=== PATIENT | female | born 1980 | race Caucasian/White ===

== ENCOUNTER → 2018-07-23 11:19 | Outpatient (CLI) | payer OTHER, SELFPAY ==
[2018-07-26 08:30] LABS: HPV Reflexed? NOT INDICATED
== END ==
PROVIDERS: Visit Provider Obstetrics & Gynecology
DX: Z12.4 Encounter for screening for malignant neoplasm of cervix (principal)
CPT/HCPCS: 88175; G0145

== ENCOUNTER → 2020-01-16 10:54 | Outpatient (CLI) | payer OTHER, SELFPAY ==
[2015-12-13 14:52] VITALS: BMI 28.3
[2020-01-16 16:43] LABS: hCG Titer Quant., Serum 16053 mIU/mL (1-3)
== END ==
PROVIDERS: Visit Provider Obstetrics & Gynecology
DX: Z32.01 Encounter for pregnancy test, result positive (principal)
CPT/HCPCS: 36415; 84702

== ENCOUNTER → 2020-03-05 | Outpatient (CLI) | payer OTHER, SELFPAY ==
[2015-12-13 14:52] VITALS: BMI 28.3
[2020-03-05 18:48] LABS: Color, Urine Yellow (Yellow); Glucose, Dipstick Normal (Normal); Ketone-Dipstick Negative (Negative); Leukocyte Esterase-Dipstick Negative /ul (Negative); Nitrite-Dipstick Negative (Negative); Occult Blood-Urine Negative /ul (Negative); Protein-Dipstick Negative (Negative); Specific Gravity, Urine 1.025 (1.002-1.030); Urine Bilirubin Dipstick Negative (Negative); Urine Clarity Clear (Clear); Urine Urobilinogen Normal (Normal)
[2020-03-05 18:52] LABS: Absolute Lymphocyte Count 2.21 X10^3/uL (0.83-4.51); Absolute Neutrophil Count 10.1 X10^3/uL (2.0-7.7); Basophil# 0.03 X10^3/uL; Basophil% 0.2 % (0-1); Eosinophil# 0.21 X10^3/uL; Eosinophils% 1.6 % (0-5); Hematocrit 33.4 % (37-47); Hemoglobin 11.4 g/dL (12.0-15.0); Lymphocyte # 2.21 X10^3/ul (4.0); Lymphocyte % 16.4 % (19-41); Mean Corp Hgb Conc 34.1 g/dL (32-36); Mean Corpuscular Hgb 29.8 pg (27.0-32.0); Mean Corpuscular Volume 87.2 fL (81-99); Mean Platelet Vol. 9.5 fl (6.2-12.0); Monocyte# 0.79 X10^3/uL; Monocyte% 5.9 % (0-10); NRBC Flagged by Analyzer 0 % (0-5); Neutrophil # 10.12 X10^3/uL (2.7-7.7); Neutrophil % 75.3 % (47-70); Platelet Count 347 K/mm3 (150-450); RBC Distribution Width CV 11.9 % (11.6-14.6); RBC Distribution Width SD 37.8 fl (35.1-43.9); Red Blood Count 3.83 M/mm3 (4.2-5.4); White Blood Count 13.4 K/mm3 (4.4-11.0)
[2020-03-05 19:08] LABS: Hemoglobin A1c 5.6 % (4.2-6.3)
[2020-03-06 07:58] LABS: HIV - WCH Non-Reactive (Nonreactive); Hepatitis B Surface Antigen Non-Reactive (Nonreactive); Hepatitis C Antibody Non-Reactive (Nonreactive); Rubella IgG 174.3 IU/mL
[2020-03-12 01:34] LABS: Prenatal RPR NONREACTIVE (NONREACTIVE)
== END | disposition home or self-care (01) ==
PROVIDERS: Referring Provider Obstetrics & Gynecology; Visit Provider Obstetrics & Gynecology
DX: Z34.82 Encounter for supervision of other normal pregnancy, second trimester (principal); Z86.32 Personal history of gestational diabetes
CPT/HCPCS: 81002; 83036; 84443; 85025; 86703; 86762; 86803; 87340

== ENCOUNTER → 2020-06-24 09:41 | Outpatient (CLI) | payer OTHER, SELFPAY ==
[2015-12-13 14:52] VITALS: BMI 28.3
[2020-06-24 11:08] LABS: Hematocrit 30.3 % (37-47); Hemoglobin 10.3 g/dL (12.0-15.0); Mean Corpuscular Volume 91.3 fL (81-99); Mean Platelet Vol. 9.2 fl (6.2-12.0); Platelet Count 279 K/mm3 (150-450); RBC Distribution Width CV 11.9 % (11.6-14.6); RBC Distribution Width SD 39.3 fl (35.1-43.9); Red Blood Count 3.32 M/mm3 (4.2-5.4); White Blood Count 11.6 K/mm3 (4.4-11.0)
[2020-06-24 11:16] LABS: Glucose Challenge Gest 1H 50g 164 mg/dL (70-140)
== END ==
PROVIDERS: Visit Provider Obstetrics & Gynecology
DX: Z34.83 Encounter for supervision of other normal pregnancy, third trimester (principal)
CPT/HCPCS: 36415; 82950; 85027

== ENCOUNTER → 2020-07-01 07:01 | Outpatient (CLI) | payer OTHER, SELFPAY ==
[2020-07-01 08:19] LABS: Glucose GTT-Gestation. Fasting 91 mg/dL (<105)
[2020-07-01 08:56] LABS: Glucose GTT-Gestational 1 Hr 232 mg/dL (<190)
[2020-07-01 09:59] LABS: Glucose GTT-Gestational 2 Hr 195 mg/dL (<165)
[2020-07-01 11:11] LABS: Glucose GTT-Gestational 3 Hr 101 L (<145)
== END ==
PROVIDERS: PCP Internal Medicine; Referring Provider Obstetrics & Gynecology; Visit Provider Obstetrics & Gynecology
DX: R73.09 Other abnormal glucose (principal)
CPT/HCPCS: 36415; 82951; 82952

== ENCOUNTER 2020-07-13 14:00 | Outpatient (RCR) | payer OTHER, SELFPAY ==
[2015-12-13 14:52] VITALS: BMI 28.3
== END 2020-07-13 23:59 ==
LOC: DC 14:00
PROVIDERS: PCP Internal Medicine; Visit Provider Obstetrics & Gynecology
DX: Z71.3 Dietary counseling and surveillance (principal); O24.419 Gestational diabetes mellitus in pregnancy, unspecified control; Z3A.00 Weeks of gestation of pregnancy not specified
CPT/HCPCS: 97802

== ENCOUNTER 2020-07-21 10:11 | Outpatient (RCR) | payer OTHER, SELFPAY ==
[2015-12-13 14:52] VITALS: BMI 28.3
== END 2020-07-21 23:59 | disposition home or self-care (01) ==
LOC: DC 10:11
PROVIDERS: PCP Internal Medicine; Visit Provider Obstetrics & Gynecology
DX: Z71.3 Dietary counseling and surveillance (principal); O24.419 Gestational diabetes mellitus in pregnancy, unspecified control; Z3A.00 Weeks of gestation of pregnancy not specified

== ENCOUNTER 2020-07-27 19:31 | Observation (INO) | payer OTHER, SELFPAY ==
[2015-12-13 14:52] VITALS: BMI 28.3
[2020-07-27 19:29] VITALS: BP 145/69; PULSE 89; TEMP 37.2; O2SAT 99; BMI 27.5
[2020-07-27] MEDS: Lactated Ringers 1,000 ML 999 ML IV (21:37)
[2020-07-27] MEDS: Labetalol 200 MG Tablet PO (21:37)
[2020-07-27 21:47] VITALS: BP 124/78; PULSE 78; TEMP 36.4; O2SAT 99
[2020-07-27 21:51] LABS: Absolute Lymphocyte Count 1.68 X10^3/uL (0.83-4.51); Absolute Neutrophil Count 7.3 X10^3/uL (2.0-7.7); Basophil# 0.02 X10^3/uL; Basophil% 0.2 % (0-1); Eosinophil# 0.11 X10^3/uL; Eosinophils% 1.1 % (0-5); Hematocrit 28.4 % (37-47); Hemoglobin 9.5 g/dL (12.0-15.0); Lymphocyte # 1.68 X10^3/ul (4.0); Mean Corp Hgb Conc 33.5 g/dL (32-36); Mean Corpuscular Hgb 29.4 pg (27.0-32.0); Mean Corpuscular Volume 87.9 fL (81-99); Mean Platelet Vol. 9.1 fl (6.2-12.0); Monocyte# 0.75 X10^3/uL; Monocyte% 7.6 % (0-10); NRBC Flagged by Analyzer 0 % (0-5); Neutrophil # 7.27 X10^3/uL (2.7-7.7); Neutrophil % 73.7 % (47-70); Platelet Count 257 K/mm3 (150-450); RBC Distribution Width CV 12.2 % (11.6-14.6); RBC Distribution Width SD 38.9 fl (35.1-43.9); Red Blood Count 3.23 M/mm3 (4.2-5.4); White Blood Count 9.9 K/mm3 (4.4-11.0)
[2020-07-27] MEDS: Lactated Ringers 1,000 ML 125 ML IV (23:01)
[2020-07-28 00:03] VITALS: BP 108/60; PULSE 85; TEMP 37.2; O2SAT 97
[2020-07-28 01:52] VITALS: BP 106/56; PULSE 80; TEMP 37.1; O2SAT 99
[2020-07-28 04:50] VITALS: BP 110/63; PULSE 81; TEMP 36; O2SAT 99
[2020-07-28 04:55] LABS: Bedside Glucose 76 mg/dL (70-110)
[2020-07-28] MEDS: Lactated Ringers 1,000 ML 125 ML IV (06:57)
--- NOTE | 2020-07-28 07:00 | US_ITS ---
STUDY: OBSTETRICAL ULTRASOUND - BIOPHYSICAL PROFILE REASON FOR EXAM: Female, 40 years old oligo LMP: 12/07/2019. PRIOR ULTRASOUND: None. TECHNIQUE: Transabdominal TECHNICAL QUALITY: Adequate. FINDINGS: There is a single intrauterine fetus. The fetus is in a cephalic presentation. There is demonstrated cardiac activity with a heart rate of 140 bpm. There is decreased amniotic fluid consistent with oligohydramnios. The largest amniotic fluid pocket measures 2.5 cm x 2.2 cm. The amniotic fluid index (BRETT) is 6.5 cm. The placenta is anterior in location and is not low lying. There are Grade 1 placental changes. Age by LMP: 33 weeks, 3 days. TAZ by LMP: 09/12/2020. BIOPHYSICAL PROFILE: Breathing Movements (FBM): 2 Gross Body Movements (GBM): 2 Tone (FT): 2 Amniotic Fluid Volume (AFV): 0 TOTAL SCORE: US/Biophysical Prof W/O Non Stres IMPRESSION: biophysical profile of 04/20. Electronically Signed: Bairon Vaca, at 8:29 EDT , Service support ,
--- NOTE | 2020-07-28 07:28 | HP.PCM_ITS ---
History and Physical Date of Admission: 07/27/20 SUBJECTIVE: 40 yo L3 at 33/2w, TAZ 09/12/20 by 6/4w US, admitted for low amniotic fluid index and irregular FHR. Pt was in office for NST for GDMA2 and cHTN, reactive NST however baby had some irregular beats. BPP was done with BRETT of 3 and missed beat when monitoring heart. Admitted for IVF hydration. Complicated by: GDMA2 on glyburide and cHTN. PARITY: (G-Total Pregnancies P-Fullterm,Premature,Induced AB,Spont AB, Ectopics, Multiple,Living) ATZ CONFIRMATION: By LMP: 08/13/19 By First Ultrasound Exam: 09/12/20 Final TAZ: 09/12/20 OB PROBLEM LIST: AMA-declines testing CF carrier. Tested at [facility]. Spouse tested and is NOT a carrier GDM in second Has gestational DM. Start with dietary consult and diabetic training. 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 Apr 24 39 8 7 7 C-Sec Epidural No Dec 29 34 0 0 0 C-Sec Epidural No REVIEW OF SYSTEMS: GENERAL - Denies fever, or chills SKIN - Denies rash, new skin lesions, or change in moles EYES - Denies blurred vision, or change in visual acuity EARS - Denies ear pain, or difficulty hearing NOSE - Denies nasal congestion, discharge, or bleeding MOUTH - Denies sore throat, or difficulty swallowing NECK - Denies pain or swelling RESPIRATORY - Denies shortness of breath, cough, wheezing CARDIOVASCULAR - Denies palpitations, chest pain, orthopnea, PND, peripheral edema, syncope or claudication GASTROINTESTINAL - Denies nausea, vomiting, diarrhea, constipation, Denies ab dominal pain, melena and or bright red blood GENITOURINARY - Denies dysuria, frequency of urination, urgency, or hesitancy MUSCULOSKELETAL - Denies joint or muscle pain, or back pain NEUROLOGICAL - Denies localized numbness, weakness, or tingling PSYCHIATRIC - Denies depression, anxiety, substance abuse or suicide attempts ENDOCRINE - Denies heat or cold intolerance, weight loss or gain, increasing thirst HEMATO-IMMUNOLOGIC - Denies easy bruising, bleeding, oral ulcerations or recurrent infections INFECTION HISTORY: High risk AIDS: No High risk Hepatitis: No Exposed to TB: No Exposed to Herpes: No Rash/viral illness since LMP: No History of STD: No PHYSICAL EXAMINATION General Appearence: 40 yo female in no acute distress Vital Signs: AF, VSS Heart: RRR without rubs or gallops Lungs: CTA x 2 Abdomen: gravid Fetus: Size: AGA Movement: present Heart: present, NST reactive on admission LABS: GBS unk Rubella immune HIV neg Hep B neg RPR nonreactive O pos Impression /Plan: 40 yo L3 at 33/2w, TAZ 09/12/20 by 4w US, admitted for low amniotic fluid index and irregular FHR. Complicated by: GDMA2 on glyburide and cHTN. -Admitted to L&D for IVF hydration. Given 1L LR bolus followed by LR at 125cc/hr -Continuous monitoring. -Continue labetolol and glyburide. -Blood glucose fasting AM and 2hr postprandial. -Likely home this morning after BPP with outpatient MFM consult.
--- NOTE | 2020-07-28 07:35 | PN.OBGYN_ITS ---
Subjective: Antepartum D1 Objective: Pt feeling well, slept some overnight. No leaking. +FM. - Physical Exam Vitals/I&O's: Vital Signs Temp Pulse BP Pulse Ox 96.8 F L 81 110/63 99 07/28/20 04:50 07/28/20 04:50 07/28/20 04:50 07/28/20 04:50 Weight: 77.383 kg Body Mass Index (BMI) 27.5 Intake and Output for Last 24 Hours 07/26/20 07/27/20 07/28/20 23:59 23:59 23:59 Intake Total 1999 991.67 / 991.67 Balance 1999 991.67 / 991.67 General: Oriented x3, Cooperative, No apparent distress HEENT: Atraumatic, Normocephalic Lungs: Normal air movement Abdomen: Soft, Gravid Extremities: No cyanosis, No edema Skin: No rashes Psych/Mental Status: Normal Affect, Appropriate Laboratory Results 07/27/20 21:30: WBC 9.9, RBC 3.23 L, Hgb 9.5 L, Hct 28.4 L, MCV 87.9, MCH 29.4, MCHC 33.5, RDW Std Deviation 38.9, RDW Coeff of Esha 12.2, Plt Count 257, MPV 9.1, Immature Gran % (Auto) 0.400, Neut % (Auto) 73.7 H, Lymph % (Auto) 17.0 L, [place] % (Auto) 7.6, Eos % (Auto) 1.1, Baso % (Auto) 0.2, Absolute Neuts (auto) 7.3, Absolute Lymphs (auto) 1.68, Nucleated RBC % 0 07/27/20 21:30: Blood Type O POSITIVE, Antibody Screen NEGATIVE 07/28/20 04:48: POC Glucose 76 Current Medications Lactated Ringer's () 1,000 mls @ 125 mls/hr IV .Q8H [facility] Last Admin: 07/28/20 06:57 Dose: 125 mls/hr Documented by: Labetalol HCl (Trandate) 200 mg PO BID [facility] Last Admin: 07/27/20 21:37 Dose: 200 mg Documented by: Medical Necessity - Tobacco Use Smoking Status: Never smoker Assessment/Plan All Active Problems Consultation regarding prematurity complication (Acute) L3 at 33/3w admitted for low amniotic fluid index and irregular FHR. monitoring reactive overnight with 140s, moderate variability, normal baseline, +accelerations, no decelerations. Some irregular beats noted by RN overnight intermittently, but not consistently. BPP 10/10. BRETT 6.5 cm with greater than 2x2 cm pocket which is not oligohydramnios. Will plan for discharge this morning after 12 hours of reassuring/reactive monitoring for MFM outpatient follow up and follow with NST/BPP and visit in office on .
[2020-07-28 08:15] VITALS: BP 129/80; PULSE 92; TEMP 36.3
--- NOTE | 2020-07-28 09:00 | DCINST_ITS ---
You will use the following diet at home:: Regular Your food should be the consistency of: Regular Discharge Activity: Return to Normal Activity, May Drive, May Shower, May Take a Tub Bath May shower in (days): 0 - Now May resume sexual activity in: No Restrictions Weight Bearing Status: Weight bearing as tolerated Call your doctor if you observe: Fever of 101 or Higher - Decreased movement, contractions, leaking fluid. Allergies/Adverse Reactions: Allergies doxycycline Allergy (Verified 07/27/20 19:31) Rash Sulfa (Sulfonamide Antibiotics) Allergy (Verified 07/27/20 19:31) Rash Medications to take at Discharge Ferrous Sulfate [Iron Supplement] 325 mg PO BID 11/30/15 Labetalol [Trandate (Beta Breonna)] 200 mg PO BID 11/30/15 Vits [Prenatabs FA ] 1 tablet PO DAILY 11/30/15 Glyburide 2.5 mg PO DINNER 07/27/20 Primary Care Physician: Beatriz Flower DO [Primary Care Provider] - Test Results: Test results from this visit will be discussed in further detail at your follow- up appointment, if applicable. Proposed Discharge Date: 07/28/20
[2020-07-28] MEDS: Labetalol 200 MG Tablet PO (09:06)
== END 2020-07-28 09:25 | disposition home or self-care (01) ==
LOC: WPOUT 07-28 12:11 → WP 07-28 12:14
PROVIDERS: Admitting Provider Student in an Organized Health Care Education/Training Program; PCP Internal Medicine; Visit Provider Student in an Organized Health Care Education/Training Program
DX: O24.419 Gestational diabetes mellitus in pregnancy, unspecified control (principal); Z3A.33 33 weeks gestation of pregnancy; O10.913 Unspecified pre-existing hypertension complicating pregnancy, third trimester; Z79.899 Other long term (current) drug therapy
CPT/HCPCS: 96360; 96361 ×2; 36415; 59025; 59050; 76819; 82962; 85025; 86850; 86900; 86901; 99218; J7120; G0378

== ENCOUNTER → 2020-08-20 | Outpatient (CLI) | payer OTHER, SELFPAY ==
[2020-07-27 19:29] VITALS: BMI 27.5
== END | disposition home or self-care (01) ==
LOC: LABSPEC 13:00
PROVIDERS: PCP Internal Medicine; Visit Provider Obstetrics & Gynecology
DX: Z36.85 Encounter for antenatal screening for Streptococcus B (principal)
CPT/HCPCS: 87081

== ENCOUNTER → 2020-08-28 09:45 | Outpatient (CLI) | PROVIDERS: PCP Internal Medicine; Visit Provider Obstetrics & Gynecology | DX: Z20.828 Contact with and (suspected) exposure to other viral communicable diseases (principal) | CPT/HCPCS: 87635; C9803; U0003 ==

== ENCOUNTER 2020-08-31 13:55 | Inpatient (IN) | payer OTHER, SELFPAY ==
--- NOTE | 2020-08-30 12:46 | HP.PCM_ITS ---
History and Physical Date of Admission: 08/31/20 ACOG ANTEPARTUM RECORD - HISTORY AND PHYSICAL (08/30/2020) Name: CONNIE MORA History of This this is a 40-year-old G3 who presents for repeat C- section at 38 weeks and 2 days gestation. care has been uneventful except for gestational diabetes with marginal control using insulin. Given this it was decided to proceed with section at this time. Patient is also on labetalol 200 mg twice daily for hypertension. OB Physician: APRYL 's Physician: Dr. Juli Allen ...................................................................... : 1980 Age: 40 Address: [address] [place] [address] Phone: (h) [phone] ([phone] Insurance Carrier: [facility] [id number] Emergency Contact: ASHUTOSH MORA [phone] ...................................................................... Final TAZ: 09/12/20 By Ultrasound: 6 weeks 4 days PARITY: (G-Total Pregnancies P-Fullterm,Premature,Induced AB,Spont AB, Ectopics, Multiple,Living) TAZ CONFIRMATION: By LMP: 08/13/19 By First Ultrasound Exam: 09/12/20 Final TAZ: 09/12/20 OB PROBLEM LIST: FHT irreg. For MFM appt 08-03-20. AMA-declines testing CF carrier. Tested at [facility]. Spouse tested and is NOT a carrier GDM in second GDMA2 Started Insulin, need x2/wk testing--poor control; plan COVID and celestone at 36 weeks and possible delivery at 37 weeks On Labetalol 200 mg BID for HTN well controlled Plans R C/S ALLERGIES: Doxycycline Rash Sulfa (Sulfonamide Antibiotics) Rash Sulfonamides Rash MEDICATIONS: ferrous sulfate 325 mg (65 mg iron) tablet One pill by mouth twice a day labetalol 200 mg tablet One tablet by mouth 2x daily Levemir FlexTouch U-100 Insulin 100 unit/mL (3 mL) subcutaneous pen 10 units qhs + DHA 28 mg iron- 975 mcg-200 mg combo pack daily SOCIAL HISTORY: Smoking - Never Alcohol Use - socially Diet - balanced Diet Lifestyle - moderate stress lifestyle and Exercise - regular Employer - [employer] 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) Illicit Drug Use - denies use of street drugs Sexual Activity - Residence - lives with Place of - [place] Love Hours Worked - 40 hours per week Spouse-Sig Other Name - Ashutosh Mora Spouse-Sig Other Occupation - mobli Spouse-Sig Other Phone No - [phone] Children Name(s) - Qian Cardenas Nolan (twins) PRIOR DELIVERY HISTORY DEL DATE GEST LAB WT LB WT OZ TYPE ANES LABOR TX Apr 24 39 8 7 7 C-Sec Epidural No Dec 16 34 0 0 0 C-Sec Epidural No ANTEPARTUM FLOW CHART ___ VISIT RTC FU F F KY U U DATE WK MD WKS HT PN HR M SS BP ED WT [place] GL D EF ST __ ____ ___ __ __ ___ __ __ __ ___ __ __ __ ___ __ 15 Oct 37 JMW 3 37 + + 112/70 0 171 - - 12 Oct 37 CM + + 112/70 0 170 - - 08 Oct 36 JMW 1 36 V + + 110/70 0 169 - - cl 50 hi 05 Oct 36 JM 1 36 V + + 120/70 169 - - 01 Oct 35 JMW 1 35 + + 116/72 0 169 - - 28 Sep 35 CM + + 104/62 0 169 - - 24 Sep 34 JMW 1 34 + + 127/70 0 168 - - 17 Sep 33 JM 1 33 V + + 120/60 0 169 - - 14 Sep 33 2 + + 116/60 0 170 tr - 10 Sep 32 JMW 1 32 + + 120/68 tr 168 tr - 02 Sep 31 JMW 1 33 B + + 110/70 0 168 tr - 12 Aug 28 JMW 3 28 + + 134/72 0 169 - - 15 Manish 24 JMW 4 24 + + 130/70 sl 167 - - 17 May 02 JMW 4 20 + + 124/68 0 161 - - 21 March 16 JMW 3 16 + ? 128/74 0 158 - - 23 Feb 12 JMW 4 + O 138/80 0 151 - - ANTEPARTUM NOTE(S): Aug 27 2020: Uncontrolled BSs; proceed with R-C/S Aug 24 2020: Aug 20 2020: Feeling well. Blood sugars copied for review., BPP 08/22Aug 17 2020: Aug 13 2020: Blood sugar log copied for review Aug 10 2020: Aug 06 2020: Marginal BSs; inc insulin to 12 units at hs; BPP 08/22Jul 30 2020: Jul 27 2020: Jul 23 2020: marginal BS control; inc Glyburide to 2.5 at dinner Jul 15 2020: see note, BS poor control; mod diet Jun 24 2020: One Hr PG today May 27 2020: Glucola/Instructions Given,Good FM Apr 29 2020: US OK Apr 02 2020: see progress note, Declines AFP Mar 05 2020: Doing Well COMPREHENSIVE ANTEPARTUM NOTE(S): Aug 27 2020: Connie is here for her NST at 37 w 5 d. She states that she feels well, and notes good FM. She denies spotting/LoF/cramping No edema noted. She is looking forward to the baby's . Blood sugar log copied for review. NST reactive, read per Dr. Stanley. AW Aug 24 2020: Connie is here for NST at 37.2 w. Feeling well. Baby active. No edema. NST read as reactive by Dr DIAMOND. Eagteresita for CS and baby. ANDREW. Aug 20 2020: Connie is here for her NST at 36 w 5 d. She states that she feels well, Reports good FM. Occasional mild cramping noted. Denies spotting/LoF. No edema noted. NST read per Dr. Stanley. AW Aug 17 2020: Connie is here for NST. Reports feeling well. Baby active. Questions about BS readings and when RCS to be done. NST reactive per Dr CANCINO and to his schedule for her questions. ANDREW. Aug 17 2020: 36wk GDMA2 on Levemir 16U qhs. OTBS Fasting 100-105, PP 110's. Will increase Levemir to 20U at night. NST reactive today. For NST q Monday and U/S . Repeat c/s, needs GBS. BARAK Aug 13 2020: Connie is here for her NST at 35 w 5 d. She states that she feels well, and reports good FM. Denies spotting/LoF/cramping. NO edema noted. Blood sugar log copied for review. She expresses concern about FBS still being up most days. NST reactive, read per Dr. Stanley. AW Aug 13 2020: BPP 10/10; very poor FBS control; increase pm insulin to 16 and plan COVID and celestone at 36 weeks and possible delivery at 37 weeks Aug 10 2020: Connie is here for NST. Feeling well. Baby active. No edema. Brought BS to be copied for chart. Relates I can't get the fasting one down. NST read as reactive by Dr DIAMOND; Insulin to be increased to 14 units. Connie verbalizes understanding. Advised to bring BS readings to regular PNV not necessary for NST. She is agreeable. andrew. Aug 06 2020: Connie is here at 34 w 5 d for a NST. She states that she feels good. Good FM noted. She denies spotting/LoF/cramping. No edema noted. NST reactive, read per Dr. Stanley. Blood sugar log copied for review. Connie states that she is doing well with insulin. AW Jul 30 2020: Connie is here for PNV, NST, BPP. She is now taking Glyburide 2.5 mg daily and will need a refill. Script is for 1.25 and taking 2.5 mg daily. She has appt with MFM on Monday. Copy of blood sugars for review by Dr Anabel Ortiz. LMT Jul 30 2020: Connie is here at 33.5 w for NST, US and appt w Dr CANCINO. States baby is active, No edema. BS readings brought and copied for chart. NST read as reactive by Dr CANCINO. ANDREW. Jul 30 2020: Pt last week with irregular heart beat, now with reactive NST 130/mod esha/+accel/-decel and no irregular beats noted. BPP reassuring 06/20. Pt for MFM consult for irregular heart rate 08/03/20 at 1100. GDMA2 on Glyburide, based on fasting blood sugars and PP will stop Glyburide and start Levemir 10 units qhs and titrate appropriately at next visit in 1 week. For BPP and NST at next visit, then for x2/week testing needs ordered. BARAK Jul 27 2020: 33/2w for NST today. Reactive after vibroacoustic stim at 40 m. Irregular HR noted on NST, BPP completed. BRETT 3 with 2x2, skipped beat noted on US. Due to skipped beats and low brett, plan for admission overnight with IVF hydration and repeat BPP in AM. L notified. Pt amenable. Will go home and return this evening. Jul 27 2020: Connie is here for NST at 33.2 weeks gestation. States baby is active. No edema. Feeling well. NST read as reactive by Dr Octavio Madrigal after almost 50 minutes. Acoustic stim used at [address] Octavio Madrigal was asked to look at and listen to FHT tracing. BPP done. To for monitoring and further eval. ANDREW. Jul 23 2020: NST reactive at 32 w 5 d, read per Dr. Stanley. BPP next. AW Jul 15 2020: Connie is being seen for PNV. Pt is 31 weeks and 4 days. US prior to visit. She has been struggling with heartburn and has failed on Tums. Advised to try Maalox, Mylanta, Pepcid, and Tagement before trying Prilosec. Pt has questions regarding blood sugars. AM Jun 24 2020: Connie is here for her 28 wk PNV today. She is doing good. Good FM. Medications and allergies reviewed today. GCT and CBC drawn today. She inquires about her FMLA forms. No questions or concerns expressed today. LJW Apr 02 2020: Doing well. Taking Labetalol 200 mg BID. Following COVID. 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 Thinks she may have felt FM once so far. Reviewed expected FM over the next 4-6 weeks. Declines genetics testing. kb Mar 06 2020: Telehealth NOB visit completed with 22 minutes spent on phone. Gill is called for NOB visit. She is with 3 living children as second was twin gestation. She delivered full-term with first . Second was complicated by GDM, twin gestation and she delivered at 34 weeks. Her sons twin A Qian weighed 5 lbs 7 oz, Twin B Ras weighed 4 lbs 11 oz. They did well but did stay in hospital for 2 weeks, required only 1 day of O2 and did gain back all of their weight very quickly. She was successful with both of them. Prior pregnancies were from [facility] and this was spontaneous. She has already spoken with waiter/waitress economy class to remind her of healthy diet to try and prevent GDM. Reviewed dietary recommendations and exercise of at least 30 minutes 5x/wk strongly encouraged. She is mindful of all and plans to incorporate in lifestyle. She is a known CF carrier but is not. Discussed AMA and testing options. She relates she is not interested in any of these currently. She had 2 prior C/S and planning repeat at 39 weeks. She does have Chronic Hypertension and is on Labetalol 200 mg bid. Discussed likely will have increased third trimester testing. Dr Stanley will determine this later in and review. panel is reviewed, OB forms reviewed. She is without question or concern otherwise and call ended. LMT Mar 05 2020: Connie is feeling less nausea, only occurring now once a week. No vomiting. [place] Depression Questionnaire completed showing 02/09. Genetics questionnaire completed showing she is AMA and taking Labetalol 200 mg BID for HTN. Declines genetics testing, known CF carrier, spouse is not. kbm Jan 22 2020: Connie is here for a PNV. Some nausea, no vomiting. Wants to know if she can take her vitamin D and elderberry supplements with . Also wants to discuss her risk of gestational diabetes. She had it with her last and wants to know when testing for that is. Gave her information for the blood test for gender. MK Jan 22 2020: ok REVIEW OF SYSTEMS: GENERAL - Denies fever, or chills SKIN - Denies rash, new skin lesions, or change in moles EYES - Denies blurred vision, or change in visual acuity EARS - Denies ear pain, or difficulty hearing NOSE - Denies nasal congestion, discharge, or bleeding MOUTH - Denies sore throat, or difficulty swallowing NECK - Denies pain or swelling RESPIRATORY - Denies shortness of breath, cough, wheezing CARDIOVASCULAR - Denies palpitations, chest pain, orthopnea, PND, peripheral edema, syncope or claudication GASTROINTESTINAL - Denies nausea, vomiting, diarrhea, constipation, Denies abdominal pain, melena and or bright red blood GENITOURINARY - Denies dysuria, frequency of urination, urgency, or hesitancy MUSCULOSKELETAL - Denies joint or muscle pain, or back pain NEUROLOGICAL - Denies localized numbness, weakness, or tingling PSYCHIATRIC - Denies depression, anxiety, substance abuse or suicide attempts ENDOCRINE - Denies heat or cold intolerance, weight loss or gain, increasing thirst HEMATO-IMMUNOLOGIC - Denies easy bruising, bleeding, oral ulcerations or recurrent infections GENETICS SCREENING: Age 35+ years: Yes Thalassemia: No Neural Tube Defect: No Down Syndrome: No FAUSTO-SACHS: No Sickle Cell Disease: No Hemophilia: No Musc. Dystrophy: No Cystic Fibrosis: No-declines screening [place] Chorea: No Mental Retardation: No Fragile X: No Other genetic: No Other defects: No SABs/still births: No Drugs since LMP: No Comments: Lebetalol INFECTION HISTORY: High risk AIDS: No High risk Hepatitis: No Exposed to TB: No Exposed to Herpes: No Rash/viral illness since LMP: No History of STD: No MENSTRUAL HISTORY: *Menses Amount/Duration: 4 daysFrequency: variablePrior Menses Date: 08/06/2010Menarche (Age Onset): 16* PAST SUMMARY: PARITY: 1. Total Pregnancies............ 3 2. Full Term Pregnancies........ 1 3. Premature.................... 1 4. Abortions - Induced.......... 0 5. Abortions - Spontaneous...... 0 6. Ectopics..................... 0 7. Multiple Births.............. 1 8. Living Children.............. 3 PAST #1: Date of :.................. 04/20/12 Gestation Weeks:................ 39 Length of labor(hours):......... 8 Sex:............................ M Weight-lbs:............... 7 Weight-oz:................ 7 Type of Delivery:............... C-Sect Type of Anesthesia:............. Epidural Place of Delivery:.............. [place] Treatment of Labor?:.... No Comment: PAST #2: Date of :.................. 12/22/15 Gestation Weeks:................ 34 Length of labor(hours):......... 0 Sex:............................ male x2 Weight-lbs:............... 0 Weight-oz:................ 0 Type of Delivery:............... C-Sect Type of Anesthesia:............. Epidural Place of Delivery:.............. [place] Treatment of Labor?:.... No Comment: QIAN/RAS PHYSICAL EXAMINATION General Appearence: 40 yo female in no acute distress Vital Signs: AF, VSS Heart: RRR without rubs or gallops Lungs: CTA x 2 Breasts: deferred Abdomen: gravid Pelvis: Cervix: Presentation: cephalic Station: Fetus: Size: AGA Movement: present Heart: present Labs for : CONNIE MORA since 12/17/2019 ORDER DATEIN DESCRIPTION VALUE UNITS RANGE A+ COMMENT CORONAVIRUS 19, JAELYN SENDOUT 08/28/20 NOTE Original Ordering Provider: Seymour Stanley COVID-19,JAELYN Not Detected Not Detected This nucleic acid amplification test was developed and its performance characteristics determined by [id number]. Nucleic acid amplification tests include PCR and TMA. This test has not been FDA cleared or approved. This test has been authorized by FDA under an Emergency Use Authorization (EUA). This test is only authorized for the duration of time the declaration that circumstances exist justifying the authorization of the emergency use of in vitro diagnostic tests for detection of SARS-CoV-2 virus and/or diagnosis of COVID-19 infection under section 564(b)(1) of the Act, 21 U.S.C. 360bbb-3(b) (1), unless the authorization is terminated or revoked sooner. When diagnostic testing is negative, the possibility of a false negative result should be considered in the context of a patient's recent exposures and the presence of clinical signs and symptoms consistent with COVID-19. An individual without symptoms of COVID-19 and who is not shedding SARS-CoV-2 virus would expect to have a negative (not detected) result in this assay. CULTURE, GROUP B STREPTOCOCCUS 08/20/20 NOTE Original Ordering Provider: Seymour Stanley EMIR Culture Group B Beta Streptococcus is not isolated. Reviewed by SEYMOUR Other 07/29/20 Unusual lab scanned Reviewed by SEYMOUR DISCHARGE INSTRUCTION 07/28/20 [facility] Medical Records Department [address] [place] [id number] Instructions for Home/Discharge Instructions 07/28/20 0900 MR#: [id number] Acct: [id number] Name: CONNIE MORA Rep #: [id number] : 1980 40 From: Kell Ortiz DO PCP: Dr. Beatriz Flower, DO Status:DEP CLI You will use the following diet at home:: Regular Your food should be the consistency of: Regular Discharge Activity: Return to Normal Activity, May Drive, May Shower, May Take a Tub Bath May shower in (days): 0 - Now May resume sexual activity in: No Restrictions Weight Bearing Status: Weight bearing as tolerated Call your doctor if you observe: Fever of 101 or Higher - Decreased movement, contractions, leaking fluid. Allergies/Adverse Reactions: Allergies doxycycline Allergy (Verified 07/27/20 19:31) Rash Sulfa (Sulfonamide Antibiotics) Allergy (Verified 07/27/20 19:31) Rash Medications to take at Discharge Ferrous Sulfate [Iron Supplement] 325 mg PO BID 11/30/15 Labetalol [Trandate (Beta Breonna)] 200 mg PO BID 11/30/15 Vits [Prenatabs FA ] 1 tablet PO DAILY 11/30/15 Glyburide 2.5 mg PO DINNER 07/27/20 Primary Care Physician: Beatriz Flower DO [Primary Care Provider] - Test Results: Test results from this visit will be discussed in further detail at your follow-up appointment, if applicable. Proposed Discharge Date: 07/28/20 07/28/20 1145 Date Kell Ortiz DO CC: Dr. Beatriz Flower DO Signed Reviewed by SEYMOUR PROGRESS NOTE - OBGYN 07/28/20 [facility] Medical Records Department [address] [place] [id number] Progress Note - OBGYN 07/28/20 0735 MR#: [id number] Acct: [id number] Name: CONNIE MORA Rep #: [id number] : 1980 40 From: Kell Ortiz DO PCP: Dr. Beatriz Flower DO Status:DEP CLI Y Location: [facility] Subjective: Antepartum D1 Objective: Pt feeling well, slept some overnight. No leaking. +FM. - Physical Exam Vitals/I O's: Vital Signs Temp Pulse BP Pulse Ox 96.8 F L 81 110/63 99 07/28/20 04:50 07/28/20 04:50 07/28/20 04:50 07/28/20 04:50 Weight: 77.383 kg Body Mass Index (BMI) 27.5 Intake and Output for Last 24 Hours 07/26/20 07/27/20 07/28/20 23:59 23:59 23:59 Intake Total 1999 991.67 / 991.67 Balance 1999 991.67 / 991.67 General: Oriented x3, Cooperative, No apparent distress HEENT: Atraumatic, Normocephalic Lungs: Normal air movement Abdomen: Soft, Gravid Extremities: No cyanosis, No edema Skin: No rashes Psych/Mental Status: Normal Affect, Appropriate Laboratory Results 07/27/20 21:30: WBC 9.9, RBC 3.23 L, Hgb 9.5 L, Hct 28.4 L, MCV 87.9, MCH 29.4, MCHC 33.5, RDW Std Deviation 38.9, RDW Coeff of Esha 12.2, Plt Count 257, MPV 9.1, Immature Gran % (Auto) 0.400, Neut % (Auto) 73.7 H, Lymph % (Auto) 17.0 L, [place] % (Auto) 7.6, Eos % (Auto) 1.1, Baso % (Auto) 0.2, Absolute Neuts (auto) 7.3, Absolute Lymphs (auto) 1.68, Nucleated RBC % 0 07/27/20 21:30: Blood Type O POSITIVE, Antibody Screen NEGATIVE 07/28/20 04:48: POC Glucose 76 Current Medications Lactated Ringer's () 1,000 mls @ 125 mls/hr IV .Q8H [facility] Last Admin: 07/28/20 06:57 Dose: 125 mls/hr Documented by: Labetalol HCl (Trandate) 200 mg PO BID [facility] Last Admin: 07/27/20 21:37 Dose: 200 mg Documented by: Medical Necessity - Tobacco Use Smoking Status: Never smoker Assessment/Plan All Active Problems Consultation regarding prematurity complication (Acute) L3 at 33/3w admitted for low amniotic fluid index and irregular FHR. monitoring reactive overnight with 140s, moderate variability, normal baseline, +accelerations, no decelerations. Some irregular beats noted by RN overnight intermittently, but not consistently. BPP 10/10. BRETT 6.5 cm with greater than 2x2 cm pocket which is not oligohydramnios. Will plan for discharge this morning after 12 hours of reassuring/reactive monitoring for MFM outpatient follow up and follow with NST/BPP and visit in office on . 07/28/20 1141 Date Kell Ortiz DO CC: Signed Reviewed by SEYMOUR HISTORY AND PHYSICAL EXAM 07/28/20 [facility] Medical Records Department [address] [place] [address] History and Physical 07/28/20 0728 MR#: [id number] Acct: [id number] Name: CONNIE MORA Rep #: [id number] : 1980 40 From: Kell Ortiz DO PCP: Dr. Beatriz Flower, DO Status:REG CLI Y Location: [id number] History and Physical Date of Admission: 07/27/20 SUBJECTIVE: 40 yo L3 at 33/2w, TZA 09/12/20 by 6/4w US, admitted for low amniotic fluid index and irregular FHR. Pt was in office for NST for GDMA2 and cHTN, reactive NST however baby had some irregular beats. BPP was done with BRETT of 3 and missed beat when monitoring heart. Admitted for IVF hydration. Complicated by: GDMA2 on glyburide and cHTN. PARITY: (G-Total Pregnancies P-Fullterm,Premature,Induced AB,Spont AB, Ectopics, Multiple,Living) TAZ CONFIRMATION: By LMP: 08/13/19 By First Ultrasound Exam: 09/12/20 Final TAZ: 09/12/20 OB PROBLEM LIST: AMA-declines testing CF carrier. Tested at [facility]. Spouse tested and is NOT a carrier GDM in second Has gestational DM. Start with dietary consult and diabetic training. 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 Apr 24 39 8 7 7 C-Sec Epidural No Dec 29 34 0 0 0 C-Sec Epidural No REVIEW OF SYSTEMS: GENERAL - Denies fever, or chills SKIN - Denies rash, new skin lesions, or change in moles EYES - Denies blurred vision, or change in visual acuity EARS - Denies ear pain, or difficulty hearing NOSE - Denies nasal congestion, discharge, or bleeding MOUTH - Denies sore throat, or difficulty swallowing NECK - Denies pain or swelling RESPIRATORY - Denies shortness of breath, cough, wheezing CARDIOVASCULAR - Denies palpitations, chest pain, orthopnea, PND, peripheral edema, syncope or claudication GASTROINTESTINAL - Denies nausea, vomiting, diarrhea, constipation, Denies abdominal pain, melena and or bright red blood GENITOURINARY - Denies dysuria, frequency of urination, urgency, or hesitancy MUSCULOSKELETAL - Denies joint or muscle pain, or back pain NEUROLOGICAL - Denies localized numbness, weakness, or tingling PSYCHIATRIC - Denies depression, anxiety, substance abuse or suicide attempts ENDOCRINE - Denies heat or cold intolerance, weight loss or gain, increasing thirst HEMATO-IMMUNOLOGIC - Denies easy bruising, bleeding, oral ulcerations or recurrent infections INFECTION HISTORY: High risk AIDS: No High risk Hepatitis: No Exposed to TB: No Exposed to Herpes: No Rash/viral illness since LMP: No History of STD: No PHYSICAL EXAMINATION General Appearence: 40 yo female in no acute distress Vital Signs: AF, VSS Heart: RRR without rubs or gallops Lungs: CTA x 2 Abdomen: gravid Fetus: Size: AGA Movement: present Heart: present, NST reactive on admission LABS: GBS unk Rubella immune HIV neg Hep B neg RPR nonreactive O pos Impression /Plan: 40 yo L3 at 33/2w, TAZ 09/12/20 by /4w US, admitted for low amniotic fluid index and irregular FHR. Complicated by: GDMA2 on glyburide and cHTN. -Admitted to L D for IVF hydration. Given 1L LR bolus followed by LR at 125cc/hr -Continuous monitoring. -Continue labetolol and glyburide. -Blood glucose fasting AM and 2hr postprandial. -Likely home this morning after BPP with outpatient MFM consult. 07/28/20 0735 Date Kell Ortiz DO Cosigner Signature: Date (if applicable) CC: Dr. Kell Ortiz DO; Dr. Beatriz Flower DO Signed Reviewed by SEYMOUR TAN W/O NON STREMarty 07/28/20 [facility] Imaging Services [address] [place] [id number] Biophysical Prof W/O Non Stres MR#: [id number] Acct: [id number] Name: CONNIE MORA Rep #: [id number] : 1980 F 40 From: Bairon carpenter MD PCP: Dr. Beatriz Flower DO Status: REG CLI Study: Biophysical Prof W/O Non Stres Date of Exam: 0 07/28/20 Exam# [id number] Ordering Dr: Kell Ortiz DO STUDY: OBSTETRICAL ULTRASOUND - BIOPHYSICAL PROFILE REASON FOR EXAM: Female, 40 years old oligo LMP: 12/07/2019. PRIOR ULTRASOUND: None. TECHNIQUE: Transabdominal TECHNICAL QUALITY: Adequate. FINDINGS: There is a single intrauterine fetus. The fetus is in a cephalic presentation. There is demonstrated cardiac activity with a heart rate of 140 bpm. There is decreased amniotic fluid consistent with oligohydramnios. The largest amniotic fluid pocket measures 2.5 cm x 2.2 cm. The amniotic fluid index (BRETT) is 6.5 cm. The placenta is anterior in location and is not low lying. There are Grade 1 placental changes. Age by LMP: 33 weeks, 3 days. TAZ by LMP: 09/12/2020. BIOPHYSICAL PROFILE: Breathing Movements (FBM): 2 Gross Body Movements (GBM): 2 Tone (FT): 2 Amniotic Fluid Volume (AFV): 0 TOTAL SCORE: US/Biophysical Prof W/O Non Stres IMPRESSION: biophysical profile of 04/20. Electronically Signed: Bairon Lio, at 8:29 EDT , Service support , CC: Dr. Kell Ortiz, DO; Dr. Beatriz Flower, DO [employer]: Signed Reviewed by SEYMOUR GESTATIONAL GTT 3HR 100G 07/01/20 NOTE Original Ordering Provider: Seymour Stanley GLU GTT-FASTING 91 mg/dL <105 GLUCOSE TOLERANCE TEST FOR Reference Interval GESTATIONAL DIABETES Fasting <105 mg/dL 1 hour <190 mg/dl 2 hour <165 mg/dl 3 hour <145 mg/dl GLU GTT- 1HR 232 mg/dL <190 H GLU GTT- 2HR 195 mg/dL <165 H GLU GTT- 3HR 101 L <145 Reviewed by SEYMOUR GLUCOSE CHALLENGE GEST 1H 50G 06/24/20 NOTE Original Ordering Provider: Seymour Stanley GLU GEST 50G 1H 164 mg/dL 70-140 H Reviewed by SEYMOUR CBC-COMPLETE BLOOD CNT NO DIFF 06/24/20 NOTE Original Ordering Provider: Seymour Stanley WBC 11.6 K/mm3 4.4-11.0 H RBC 3.32 M/mm3 4.2-5.4 L HGB 10.3 g/dL 12.0-15.0 L HCT 30.3 % 37-47 L MCV 91.3 fL 81-99 MCH 31.0 pg 27.0-32.0 MCHC 34.0 g/dL 32-36 RDW CV 11.9 % 11.6-14.6 RDW SD 39.3 fl 35.1-43.9 PLT 279 K/mm3 150-450 MPV 9.2 fl 6.2-12.0 Reviewed by SEYMOUR RPR 03/05/20 NOTE Original Ordering Provider: Seymour Stanley RPR NONREACTIVE NONREACTIVE Reviewed by SEYMOUR HEPATITIS C ANTIBODY 03/05/20 NOTE Original Ordering Provider: Seymour Stanley HEPATITIS C AB Non-Reactive Nonreactive Non Reactive: < 0.8 Equivocal: >/= 0.8 to < 1.0 Reactive: >/= 1.0 The CDC recommends that a reactive/equivocal HCV antibody result be followed up by the HCV Nucleic Acid Amplification test (362697) Reviewed by YAMILETH HEPATITIS B SURFACE ANTIGEN 03/05/20 NOTE Original Ordering Provider: Seymour Stanley HEPB SURFACE AG Non-Reactive Nonreactive Reviewed by YAMILETH HIV - H 03/05/20 NOTE Original Ordering Provider: Seymour Stanley HIV - [facility] Non-Reactive Nonreactive Reviewed by YAMILETH RUBELLA IGG 03/05/20 NOTE Original Ordering Provider: Seymour Stanley RUBELLA IGG 174.3 IU/mL Antibody results Interpretation of Immune Status < 5 IU/ml Presumed Non-immune 5 - < 10 IU/ml Equivocal > or = 10 IU/ml Presumed Immune Reviewed by YAMILETH T AND S-NO CHARGE W/PNP 03/05/20 Reason for Type AND Screen/Red Cells: Surgery? N [facility]~[address] [place], [address]~ BLOOD TYPE GEL O POSITIVE N AB SCREEN GEL NEGATIVE N Reviewed by YAMILETH THYROID STIM HORMONE (TSH) 03/05/20 NOTE Original Ordering Provider: Seymour Stanley TSH 0.80 uIU/mL 0.358-3.74 Reviewed by YAMILETH HEMOGLOBIN A1C 03/05/20 NOTE Original Ordering Provider: Seymour Stanley HGB A1C 5.6 % 4.2-6.3 Reviewed by YAMILETH CBC W/DIFF, AUTOMATED 03/05/20 NOTE Original Ordering Provider: Seymour Stanley WBC 13.4 K/mm3 4.4-11.0 H RBC 3.83 M/mm3 4.2-5.4 L HGB 11.4 g/dL 12.0-15.0 L HCT 33.4 % 37-47 L MCV 87.2 fL 81-99 MCH 29.8 pg 27.0-32.0 MCHC 34.1 g/dL 32-36 RDW CV 11.9 % 11.6-14.6 RDW SD 37.8 fl 35.1-43.9 PLT 347 K/mm3 150-450 MPV 9.5 fl 6.2-12.0 NEUT% 75.3 % 47-70 H LY% 16.4 % 19-41 L MONO% 5.9 % 0-10 EO% 1.6 % 0-5 BASO% 0.2 % 0-1 IM GRAN % 0.600 % 0.0-0.9 IG% - Immature Granulocytes (promyelocytes, myelocytes and metamyelocytes) > 1% indicates that a LEFT SHIFT is Present. ABSOLUTE NEUT 10.1 X10 3/uL 2.0-7.7 H ABSOLUTE LYMPH 2.21 X10 3/uL 0.83-4.51 NRBC, FLAGGED 0 % 0-5 Reviewed by YAMILETH URINALYSIS, ROUTINE (DIPSTICK) 03/05/20 NOTE Original Ordering Provider: Seymour Stanley COLOR Yellow Yellow CLARITY Clear Clear GLUCOSE, UR Normal mg/dl Normal BILIRUBIN URINE Negative mg/dL Negative KETONE UR Negative mg/dl Negative SP.GR. DIPSTX 1.025 1.002-1.030 PH UR 5.0 5.0 - 8.0 PROT DIPSTX Negative mg/dl Negative UROBILI Normal mg/dl Normal NITRITE UR Negative Negative OCCULT BLOOD-UR Negative /ul Negative LEUK ESTERASE Negative /ul Negative Reviewed by YAMILETH HCG TITER QUANT., SERUM 01/16/20 NOTE Original Ordering Provider: Seymour Stanley HCG QUANT. 36062 mIU/mL 1-3 H hCG levels with Gestational Age Gestational Age hCG mIU/mL (IU/L) 0.2 - 1 week 5 - 50 1-2 weeks 50 - 500 2-3 weeks 100 - 5000 3-4 weeks 500 - 42632 4-5 weeks 1000 - 72146 5-6 weeks 17707 - 100,000 6-8 weeks 59082 - 200,000 2-3 months 42146 - 100,000 Reviewed by SEYMOUR PROVIDER SIGNATURE ( REQUIRED) Impression /Plan: 38+2-week intrauterine with poorly controlled gestational diabetes on insulin. Plan repeat section. Preparations in progress for delivery.
[2020-08-31] VITALS (13 sets, daily range): BP systolic 108–127; BP diastolic 36–79; PULSE 67–86; RESP 16–18; TEMP 36.4–37.1; O2SAT 95–100; BMI 27.4
[2020-08-31] MEDS: Lactated Ringers 1,000 ML 999 ML IV (14:25)
[2020-08-31] MEDS: Acetaminophen 500 MG Tablet 1000 MG PO ×2 (14:26→19:53)
[2020-08-31 14:36] LABS: Absolute Lymphocyte Count 1.76 X10^3/uL (0.83-4.51); Absolute Neutrophil Count 9.1 X10^3/uL (2.0-7.7); Basophil# 0.02 X10^3/uL; Basophil% 0.2 % (0-1); Eosinophil# 0.22 X10^3/uL; Eosinophils% 1.8 % (0-5); Hematocrit 32.7 % (37-47); Hemoglobin 10.7 g/dL (12.0-15.0); Lymphocyte # 1.76 X10^3/ul (4.0); Lymphocyte % 14.8 % (19-41); Mean Corp Hgb Conc 32.7 g/dL (32-36); Mean Corpuscular Hgb 29.5 pg (27.0-32.0); Mean Corpuscular Volume 90.1 fL (81-99); Mean Platelet Vol. 9.4 fl (6.2-12.0); Monocyte# 0.71 X10^3/uL; NRBC Flagged by Analyzer 0 % (0-5); Neutrophil # 9.13 X10^3/uL (2.7-7.7); Neutrophil % 76.7 % (47-70); Platelet Count 263 K/mm3 (150-450); RBC Distribution Width CV 12.7 % (11.6-14.6); RBC Distribution Width SD 42.1 fl (35.1-43.9); Red Blood Count 3.63 M/mm3 (4.2-5.4); White Blood Count 11.9 K/mm3 (4.4-11.0)
[2020-08-31 15:00] LABS: Bedside Glucose 156 mg/dL (70-110)
[2020-08-31] MEDS: Lactated Ringers 1,000 ML 150 ML IV (15:25)
[2020-08-31] MEDS: Sodium Citrate/Citric Acid 30 ML UDC PO (15:48)
[2020-08-31] MEDS: Cefazolin 2 GM in 0.9% Normal Saline 100 ML IV (16:35)
--- NOTE | 2020-08-31 18:09 | PCM.OPRPT ---
Delivery Classification: Scheduled Final TAZ: 09/12/20 Final TAZ Source: US <20 weeks Gestational age: 38 Weeks and 2 Days configuration specialist: Mario Ortiz Type of Anesthesia:: Spinal - With Duramorph Date of Procedure: 08/31/20 Pre-Operative Diagnosis: Gestational Diabetes Type A2 Poorly Controlled, Chronic Hypertension, Prior Section Post-Operative Diagnosis: Gestational Diabetes Type A2 Poorly Controlled, Chronic Hypertension, Prior Section Description of Procedure: Surgeon: Steve Stanley MD, FACOG Anesthesia: Davy Hussein CRNA Procedure: Repeat Low Transverse Cervical Caesarean Section Findings: Viable female infant with Apgars of 8/9 in occiput anterior presentation with clear amniotic fluid and normal three-vessel placenta. Indication: This is a 40-year-old who presents for her fourth at 38w2d weeks gestation. care has been eventful for poorly controlled type A2 gestational diabetes and chronic hypertension. The patient has been counseled regarding the risk and indications of this procedure including the possibility of bleeding infection and injury to surrounding structures such as bowel bladder. All questions were answered. Procedure: Patient was taken to the operating room where after spinal anesthesia was placed, the patient was prepped and draped in usual sterile fashion and a Bob catheter was placed. The abdomen was entered through the patient's prior Pfannenstiel incision and peritoneum was entered bluntly. After developing a bladder flap on the lower uterine segment a low transverse incision was made on the uterus and head was easily delivered onto the operative field the nose mouth and oropharynx were bulb suctioned. Subsequently a viable female was born with Apgars of 8/9. The was noted to cry move all extremities vigorously on the operative field. The umbilical cord was doubly clamped and ligated and handed to the nursery personnel who were present for the delivery. Placenta was delivered and noted to be 3 vessels and normal. Uterus was exteriorized and remaining placental tissue was removed. The uterus was then closed in 2 layers first with running locked 0 Vicryl suture followed by a second imbricating layer with 0 Vicryl suture. 0 Vicryl suture was then used in a horizontal mattress interrupted fashion to affect final hemostasis of the uterine incision line. Normal fallopian tubes and ovaries were visualized and the uterus was returned to the pelvis. Hemostasis was noted and rectus abdominis muscles were reapproximated in the midline with interrupted Number 0 Vicryl suture in a horizontal mattress fashion. Fascia was closed with running Number 1 PDS Strata fix suture. Subcutaneous tissue was irrigated with copious amounts of saline solution and then closed with running 3-0 Vicryl suture. Skin was closed with 4-0 monocryl suture in a running subcuticular fashion. Steri strips and a Mepilex dressing were placed across the incision. The patient tolerated the procedure well and was taken to the recovery room in satisfactory condition. Sponge, needle, and instrument counts were all reportedly correct. EBL was less than 500 cc. Ancef 2 gms IV was given prior to the procedure. Amniotic Fluid Description: Clear Placenta Disposition: [facility] Specimen(s) sent to pathology: None Drain: Bob to straight drain Cord Entanglement: None - None Cord Vessel Description: 3 Vessels Esitmated Blood Loss (ml): 500 cc Gender: Female (1 minute): 8 (5 minute): 9 Antibiotic Given: Ancef 2 grams IV x1 Pt instructed on risks of surgery: Bleeding, Infection, Injury to surrounding structure(s) including bowel and bladder Complications: None - Admit VTE Documentation VTE Present on Admission: Yes VTE Mechan Device Prophylaxis: SCD's
--- NOTE | 2020-08-31 18:15 | DCINST_ITS ---
<Steve Stanley - Last Filed: 08/31/20 18:15> Discharge Diet: No Restrictions Discharge Activity: May not drive while taking narcotic pain medications., May Shower, May Take a Tub Bath May resume sexual activity in: 4-6 weeks Lifting Restrictions: 20 pounds Additional Activity Instructions:: Nothing in the vagina for 4-6 weeks. You may return to work/school in 6 weeks. Call your doctor if your incision/area has: Continuous Slow Oozing, Sudden Increased Bleeding, Increased Pain/ Swelling, Increased Redness, Foul Smelling Discharge Call your doctor if you observe: Fever of 101 or Higher, Inability to urinate, Inability to have a bowel movement, Using more than one pad per hour Additional Instructions: If you experience any of the following, contact your healthcare provider. * Bleeding that soaks a pad every hour for 2 hours * Fever 100.4 or higher * Unrelieved incision or abdominal pain * Swelling, redness, discharge or bleeding from your incision or episiotomy site * Your incision begins to separate * Problems urinating (including inability to urinate or burning while urinating). * Visual changes * Severe headache * Flu-like symptoms * Pain or redness in one of both of your breasts * Pain, warmth, tenderness or swelling in your legs, especially the calf area * Frequent nausea and vomiting * Symptoms of depression or anxiety If you experience any of the following, call 911 or go to the nearest Emergency Room. * Chest pain * Problems breathing * Seizure activity * Partial or complete paralysis of a body part, slurred speech, weakness or drooping of the face, or a sudden inability to walk or hold your balance Allergies/Adverse Reactions: Allergies doxycycline Allergy (Verified 07/27/20 19:31) Rash Sulfa (Sulfonamide Antibiotics) Allergy (Verified 07/27/20 19:31) Rash Medications to take at Discharge Ferrous Sulfate [Iron Supplement] 325 mg PO BID 11/30/15 Labetalol [Trandate (Beta Breonna)] 200 mg PO BID 11/30/15 Vits [Prenatabs FA ] 1 tablet PO DAILY 11/30/15 Docusate Sodium [Colace] 100 mg PO BID PRN PRN #60 cap 08/31/20 Oxycodone [Oxyir] 5 mg PO Q6H PRN PRN 7 Days #20 tab 08/31/20 The following prescriptions were given: Docusate Sodium [Colace] 100 mg PO BID PRN PRN #60 cap PRN Reason: Constipation Transmission Status: Received by [id number] Oxycodone [Oxyir] 5 mg PO Q6H PRN PRN 7 Days #20 tab PRN Reason: Pain Score 6-10 Transmission Status: Received by [id number] Follow-Up: Call to make an appointment with your doctor for an incision check in 1-2 weeks. You will also need a 6 week post- follow up appointment. Test results from this visit will be discussed in further detail at your follow- up appointment, if applicable. Please Follow Up With: Steve Stanley MD - [phone] When: Call to make an appointment for an incision check in 2 weeks. Primary Care Physician: Beatriz Flower DO [Primary Care Provider] - <Kell Ortiz - Last Filed: 09/02/20 08:42> Additional Instructions: If you experience any of the following, contact your healthcare provider. * Bleeding that soaks a pad every hour for 2 hours * Fever 100.4 or higher * Unrelieved incision or abdominal pain * Swelling, redness, discharge or bleeding from your incision or episiotomy site * Your incision begins to separate * Problems urinating (including inability to urinate or burning while urinating). * Visual changes * Severe headache * Flu-like symptoms * Pain or redness in one of both of your breasts * Pain, warmth, tenderness or swelling in your legs, especially the calf area * Frequent nausea and vomiting * Symptoms of depression or anxiety If you experience any of the following, call 911 or go to the nearest Emergency Room. * Chest pain * Problems breathing * Seizure activity * Partial or complete paralysis of a body part, slurred speech, weakness or dr ooping of the face, or a sudden inability to walk or hold your balance Follow-Up: Call to make an appointment with your doctor for an incision check in 1-2 weeks. You will also need a 6 week post- follow up appointment. Test results from this visit will be discussed in further detail at your follow- up appointment, if applicable.
[2020-08-31] MEDS: Oxytocin 30 units/NS 500 ml 30 UNITS/500 ML IV.SOLN 167 UNITS IV (18:47)
[2020-08-31] MEDS: Ondansetron 4 MG/2 ML Vial IV (19:53)
[2020-08-31] MEDS: Lactated Ringers 1,000 ML 100 ML IV (22:09)
[2020-08-31] MEDS: Ketorolac 30 MG/ML Syringe IV (22:09)
[2020-08-31] MEDS: Cefazolin 1 GM/50 ML BAG IV (22:10)
[2020-08-31] MEDS: Labetalol 100 MG Tablet 200 MG PO (22:14)
[2020-09-01] VITALS (7 sets, daily range): BP systolic 112–125; BP diastolic 62–79; PULSE 70–83; RESP 16–18; TEMP 36.3–37.1; O2SAT 97–99
[2020-09-01] MEDS: Acetaminophen 500 MG Tablet 1000 MG PO ×4 (02:08→19:55)
[2020-09-01] MEDS: Ketorolac 30 MG/ML Syringe IV ×3 (04:42→17:01)
[2020-09-01 05:06] LABS: Hematocrit 30.1 % (37-47); Hemoglobin 10.1 g/dL (12.0-15.0); Mean Corp Hgb Conc 33.6 g/dL (32-36); Mean Corpuscular Hgb 29.8 pg (27.0-32.0); Mean Corpuscular Volume 88.8 fL (81-99); Mean Platelet Vol. 8.9 fl (6.2-12.0); Platelet Count 259 K/mm3 (150-450); RBC Distribution Width CV 12.6 % (11.6-14.6); Red Blood Count 3.39 M/mm3 (4.2-5.4); White Blood Count 14.9 K/mm3 (4.4-11.0)
[2020-09-01 05:23] LABS: Glucose 86 mg/dL (74-106)
[2020-09-01] MEDS: Cefazolin 1 GM/50 ML BAG IV (06:04)
--- NOTE | 2020-09-01 06:38 | PCM.PN.BLA ---
Progress Note POD#1 Subjective: Lochia minimal. Pain controlled. . Objective: Vital Signs Temp Pulse Resp BP Pulse Ox 09/01/20 05:05 98.8 F 83 16 113/79 99 09/01/20 04:26 74 16 99 09/01/20 02:03 97.8 F 70 18 112/63 97 08/31/20 23:59 97.7 F L 75 16 108/70 99 08/31/20 22:03 97.6 F L 72 16 123/56 H 100 08/31/20 20:59 97.8 F 73 16 123/60 H 98 08/31/20 19:50 97.5 F L 78 16 112/79 100 08/31/20 19:46 97.5 F L 78 16 112/79 100 08/31/20 19:27 97.8 F 72 18 109/79 100 08/31/20 19:00 98.0 F 67 16 127/55 H 100 08/31/20 18:45 97.5 F L 71 16 124/53 H 98 GEN: NAD CARDIORESP: no increased effort ABDOMEN: soft, mildly tender. Dressing c/d EXT: no edema Labs: Laboratory Last Values WBC 14.9 K/mm3 (4.4-11.0) H 09/01/20 04:59 RBC 3.39 M/mm3 (4.2-5.4) L 09/01/20 04:59 Hgb 10.1 g/dL (12.0-15.0) L 09/01/20 04:59 Hct 30.1 % (37-47) L 09/01/20 04:59 MCV 88.8 fL (81-99) 09/01/20 04:59 MCH 29.8 pg (27.0-32.0) 09/01/20 04:59 MCHC 33.6 g/dL (32-36) 09/01/20 04:59 RDW Std Deviation 41.0 fl (35.1-43.9) 09/01/20 04:59 RDW Coeff of Esha 12.6 % (11.6-14.6) 09/01/20 04:59 Plt Count 259 K/mm3 (150-450) 09/01/20 04:59 MPV 8.9 fl (6.2-12.0) 09/01/20 04:59 Immature Gran % (Auto) 0.500 % (0.0-0.9) 08/31/20 14:25 Neut % (Auto) 76.7 % (47-70) H 08/31/20 14:25 Lymph % (Auto) 14.8 % (19-41) L 08/31/20 14:25 Collier % (Auto) 6.0 % (0-10) 08/31/20 14:25 Eos % (Auto) 1.8 % (0-5) 08/31/20 14:25 Baso % (Auto) 0.2 % (0-1) 08/31/20 14:25 Absolute Neuts (auto) 9.1 X10^3/uL (2.0-7.7) H 08/31/20 14:25 Absolute Lymphs (auto) 1.76 X10^3/uL (0.83-4.51) 08/31/20 14:25 Nucleated RBC % 0 % (0-5) 08/31/20 14:25 Glucose 86 mg/dL (74-106) 09/01/20 04:59 POC Glucose 156 mg/dL (70-110) H 08/31/20 14:45 Blood Type O POSITIVE 08/31/20 14:25 Antibody Screen NEGATIVE 08/31/20 14:25 A/P: 40 yo POD#1 s/p repeat section. Complicated by: GDMA2, chronic hypertension. 1. Post -H/H stable -Breast feeding 2. GDMA2 -Fasting OTBS wnl this morning. Will need 2hr GTT at 6w visit. Stop all meds. 3. Chronic Hypertension -BPs stable on labetolol 200 mg BID. May need decreased, monitor closely -1w BP check Dispo: Likely home POD#2 STROKE Vital Signs/Narrative: Vital Signs Temp Pulse Resp BP Pulse Ox 09/01/20 05:05 98.8 F 83 16 113/79 99 09/01/20 04:26 74 16 99
[2020-09-01] MEDS: Labetalol 100 MG Tablet 200 MG PO ×2 (10:42→22:36)
[2020-09-01] MEDS: 0.9% Saline Lock 10 ML Syringe IV ×2 (10:42→17:01)
[2020-09-01] MEDS: Senna/Docusate Sodium 1 Tablet PO (10:51)
[2020-09-01] MEDS: Ferrous Sulfate 325 MG Tablet PO ×2 (12:55→17:00)
[2020-09-01] MEDS: Prenatal Vits Tablet 1 TABLET PO (12:58)
[2020-09-01 15:15] LABS: Bedside Glucose 76 mg/dL (70-110)
--- NOTE | 2020-09-01 19:53 | NURSING ---
dressing is wet pt staes it happeded when she showered. checked with states to take off and leave to air, will do as soon as pt done nursing.
[2020-09-01] MEDS: Ibuprofen 600 MG Tablet PO (22:35)
[2020-09-02 02:00] VITALS: BP 111/75; PULSE 66; RESP 16; TEMP 36.5
[2020-09-02] MEDS: Acetaminophen 500 MG Tablet 1000 MG PO ×2 (02:09→08:46)
[2020-09-02] MEDS: Ibuprofen 600 MG Tablet PO ×2 (04:27→09:36)
--- NOTE | 2020-09-02 08:18 | PCM.PN.BLA ---
Progress Note POD #2 Subjective: Pain controlled. Ambulating, tolerating diet. Lochia minimal. Objective: Vital Signs Temp Pulse Resp BP 09/02/20 02:00 97.7 F L 66 16 111/75 Gen: NAD CARDIORESP: no increased effort ABDOMEN: soft, mildly tender. incision c/d/i EXT: trace edema Labs: Laboratory Tests 09/01/20 Range/Units 04:53 POC Glucose 76 (70-110) mg/dL A/P: 40 yo POD#2 s/p repeat section. Complicated by GDMA2 and chronic hypertension. 1. - 2. GDMA2 -2hr GTT at 6w 3. Chronic HTN -BP well controlled on 200 mg labetolol BID. Diet: Regular IVFs: HLIV DVT PPX: scds, ambulate Dispo: Home today. Follow up 1w BP and incision check.
[2020-09-02 08:31] VITALS: BP 122/54; PULSE 83; RESP 16; TEMP 36.9
[2020-09-02] MEDS: Senna/Docusate Sodium 1 Tablet PO (09:36)
--- NOTE | 2020-09-11 11:06 | NURSING ---
on 09/11/20 I documented on the operative record for the purposes of charge capture.
--- NOTE | 2020-12-07 12:46 | NURSING ---
information added today was collected from Nelly Mason RN on 09/11/20 who took care of this patient. This information was not documented at time of delivery.
== END 2020-09-02 10:30 | disposition home or self-care (01) | DRG 787 ==
PROVIDERS: Admitting Provider Obstetrics & Gynecology; PCP Internal Medicine; Referring Provider Obstetrics & Gynecology; Visit Provider Obstetrics & Gynecology
PROC: 10D00Z1 Extraction of Products of Conception, Low, Open Approach (ICD-10-PCS; CPT 59514; principal; 2020-08-31 16:00)
DX: O34.211 Maternal care for low transverse scar from previous cesarean delivery (principal); O10.92 Unspecified pre-existing hypertension complicating childbirth; O24.424 Gestational diabetes mellitus in childbirth, insulin controlled; Z3A.38 38 weeks gestation of pregnancy; Z37.0 Single live birth; Z14.1 Cystic fibrosis carrier; Z23 Encounter for immunization
CPT/HCPCS: 82947; 82962; 85025; 85027; 86850; 86900; 86901; 99218; J7120; 90686; A4216; G0378; J2405

== ENCOUNTER → 2021-03-15 | Outpatient (CLI) | payer OTHER, SELFPAY ==
[2020-08-31 14:04] VITALS: BMI 27.4
[2021-03-17 09:55] LABS: HPV APTIMA, High Risk Negative (Negative)
== END | disposition home or self-care (01) ==
PROVIDERS: PCP Internal Medicine; Visit Provider Obstetrics & Gynecology
DX: Z12.4 Encounter for screening for malignant neoplasm of cervix (principal)
CPT/HCPCS: 87624; 88175; G0145

== ENCOUNTER → 2022-03-31 | Outpatient (CLI) | payer OTHER, SELFPAY ==
--- NOTE | 2022-03-31 07:37 | BI_ITS ---
MAMMOGRAPHY - BILATERAL SCREENING REASON FOR EXAM: Female, 42 years old. Routine annual screening examination. PERTINENT HISTORY: Non-contributory. TECHNIQUE: Digital bilateral breast beth (3D mammographic acquisition) in the CC and MLO projections. 2-D mediolateral oblique (MLO) and craniocaudad (CC) views of both breasts were obtained. CAD: Full Field Digital Mammography with Computer Added Detection was performed. COMPARISON: None. Baseline examination. FINDINGS: Breast Composition: There are scattered areas of fibroglandular density. There are no dominant masses or suspicious calcifications. Small benign appearing bilateral axillary lymph nodes. No other significant abnormalities are identified. BI/SCRN MAMM (CAD)W/BETH BILAT IMPRESSION: Negative screening mammogram. Yearly followup mammogram recommended. (A) ASSESSMENT CATEGORY: BIRADS Category 2: Benign. A letter regarding these results will be sent to the patient by the facility within 30 days. Approximately 10% of breast cancers are not detected by mammography. A normal mammogram should not delay biopsy of a clinically suspicious abnormality. [id number] Electronically Signed: Bairon Vaca MD at 8:50 EDT ,
== END | disposition home or self-care (01) ==
LOC: OPBI 07:35
PROVIDERS: PCP Internal Medicine; Referring Provider Obstetrics & Gynecology; Visit Provider Obstetrics & Gynecology
DX: Z12.31 Encounter for screening mammogram for malignant neoplasm of breast (principal)
CPT/HCPCS: 77063; 77067

== ENCOUNTER → 2023-04-05 | Outpatient (CLI) | payer OTHER, SELFPAY ==
--- NOTE | 2023-04-05 07:13 | BI_ITS ---
MAMMOGRAPHY - BILATERAL SCREENING REASON FOR EXAM: Female, 43 years old. Routine annual screening examination. PERTINENT HISTORY: Mother with breast cancer. TECHNIQUE: Digital bilateral breast beth (3D mammographic acquisition) in the CC and MLO projections. 2-D mediolateral oblique (MLO) and craniocaudad (CC) views of both breasts were obtained. CAD: Full Field Digital Mammography with Computer Added Detection was performed. COMPARISON: Mammogram from 03/31/2022. FINDINGS: Breast Composition: There are scattered areas of fibroglandular density. There are no dominant masses or suspicious calcifications. Stable small benign-appearing bilateral axillary nodes. No other significant abnormalities are identified. There has been no significant change since the prior study. BI/SCRN MAMM (CAD)W/BETH BILAT IMPRESSION: Stable bilateral screening mammogram. Yearly follow-up mammogram recommended. (A) ASSESSMENT CATEGORY: BIRADS Category 2: Benign. A letter regarding these results will be sent to the patient by the facility within 30 days. Approximately 10% of breast cancers are not detected by mammography. A normal mammogram should not delay biopsy of a clinically suspicious abnormality. Electronically Signed: Matthew Nichols MD at 17:30 EDT ,
== END | disposition home or self-care (01) ==
LOC: OPBI 07:12
PROVIDERS: PCP Internal Medicine; Referring Provider Obstetrics & Gynecology; Visit Provider Obstetrics & Gynecology
DX: Z12.31 Encounter for screening mammogram for malignant neoplasm of breast (principal)
CPT/HCPCS: 77063; 77067

== ENCOUNTER → 2024-04-09 | Outpatient (CLI) | payer OTHER, SELFPAY ==
--- NOTE | 2024-04-09 14:38 | BI_ITS ---
MAMMOGRAPHY - BILATERAL SCREENING REASON FOR EXAM: Female, 44 years old. Routine annual screening examination. PERTINENT HISTORY: Mother with breast cancer. TECHNIQUE: Digital bilateral breast beth (3D mammographic acquisition) in the CC and MLO projections. 2-D mediolateral oblique (MLO) and craniocaudad (CC) views of both breasts were obtained. CAD: Full Field Digital Mammography with Computer Added Detection was performed. COMPARISON: Comparison is made with prior study dated April 05, 2023 and March 31, 2022. FINDINGS: Breast Composition: There are scattered areas of fibroglandular density. There are no dominant masses or suspicious calcifications. No other significant abnormalities are identified. There has been no significant change since the prior study. BI/SCRN MAMM (CAD)W/BETH BILAT IMPRESSION: Stable bilateral screening mammogram. Yearly follow-up mammogram recommended. (A) ASSESSMENT CATEGORY: BIRADS Category 1: Negative. A letter regarding these results will be sent to the patient by the facility within 30 days. Approximately 10% of breast cancers are not detected by mammography. A normal mammogram should not delay biopsy of a clinically suspicious abnormality. [id number] Electronically Signed: Bairon Vaca MD at 15:34 EDT ,
== END | disposition home or self-care (01) ==
LOC: OPBI 14:37
PROVIDERS: PCP Internal Medicine; Referring Provider Nurse Practitioner Family; Visit Provider Nurse Practitioner Family
DX: Z12.31 Encounter for screening mammogram for malignant neoplasm of breast (principal); Z80.3 Family history of malignant neoplasm of breast
CPT/HCPCS: 77063; 77067

== ENCOUNTER → 2025-04-10 | Outpatient (CLI) | payer OTHER, SELFPAY ==
--- NOTE | 2025-04-10 07:59 | BI_ITS ---
EXAM: SCRN MAMM (CAD)W/BETH BILAT DATE: 04/10/2025 CLINICAL HISTORY: F, Age 45 y/o , SCREENING History of mother with breast cancer. BREAST CANCER RISK ASSESSMENT: Not assessed. TECHNIQUE: Bilateral screening digital breast tomosynthesis with 2D and 3D images. Computer aided detection. COMPARISON: Prior exam(s) dated April 09, 2024.. FINDINGS: TISSUE DENSITY: The breast tissue is composed of scattered area of fibroglandular density. Bilateral Breast Mammographic Findings: No significant masses, calcifications or other abnormalities are identified. No suspicious masses, areas of developing architectural distortion, or suspicious calcifications. There has been no significant interval change. BI/SCRN MAMM (CAD)W/BETH BILAT IMPRESSION: OVERALL FINAL ASSESSMENT: BIRADS 1 NEGATIVE RECOMMENDATION: Routine annual follow-up in 1 Year A letter with findings and recommendations will be mailed to the patient. Reading Location: [id number]
== END | disposition home or self-care (01) ==
LOC: OPBI 07:57
PROVIDERS: PCP Internal Medicine; Referring Provider Nurse Practitioner Family; Visit Provider Nurse Practitioner Family
DX: Z12.31 Encounter for screening mammogram for malignant neoplasm of breast (principal)
CPT/HCPCS: 77063; 77067